=== PATIENT | female | born 1940 | race Hispanic/Latino ===

== ENCOUNTER 2023-08-31 08:31 | Inpatient (IN) | payer MEDICARE, MEDICAID ==
[2023-08-31] MEDS ORDERED: Acetaminophen 500 MG TAB ONE (09:23)
[2023-08-31 09:45] LABS: Bacteria/HPF 4+ HPF (None Seen); Bilirubin Negative (Negative); Blood, Urine 2+ (Negative); CAUTI Indications for Culture Pelvic or flank pain; Clarity Turbid (Clear); Glucose, Urine (Dipstick) 50 mg/dL (Negative); Ketone, Urine 20 mg/dL (Negative); Leukocyte 500 Leu/uL (Negative); Nitrite 2+ (Negative); Protein, Urine (Dipstick) 30 mg/dL (Neg-Trace); Specific Gravity, Urine 1.011 (1.002-1.036); Squamous Epithelial None Seen HPF (0-3); Urobilinogen Normal mg/dL (Less than 2); WBC/HPF Greater than 50 HPF (0-3); pH, Urine 6.5 (5.0-9.0)
[2023-08-31 09:47] LABS: Urine Culture Reflex Yes Yes
[2023-08-31 10:23] LABS: #Monocytes 1.3 thou/uL (0.11-0.59); #Neutrophils 15.2 thou/uL (1.40-6.50); %Basophils 0.1 % (0.0-1.0); %Lymphocytes 4.6 % (21.0-51.0); %Monocytes 7.6 % (0.0-10.0); %Neutrophils 86.7 % (42.0-75.0); Hematocrit 36.3 % (36.0-47.0); Hemoglobin 12.7 g/dL (12.0-16.0); Mean Corpuscular Hemoglobin 30.9 pg (27.0-31.0); Mean Corpuscular Volume 88.3 fl (78.0-98.0); Mean Platelet Volume 8.7 fL (7.4-10.4); Platelet Count 122 10x3/uL (130-400); RBC Distribution Width 13.8 % (11.5-14.5); Red Blood Cell (RBC) Count 4.11 mill/uL (4.20-5.40); White Blood Cell (WBC) Count 17.5 10x3/uL (4.8-10.8)
[2023-08-31] MEDS ORDERED: Iopamidol-370 76% 500 ML MDV (1 ML CHARGE) ONE (10:25)
[2023-08-31 10:35] LABS: Influenza A by NAA Not Detected (NotDetected); Influenza B by NAA Not Detected (NotDetected); SARS-CoV-2 NAA Rapid Test Not Detected (NotDetected)
[2023-08-31 10:39] LABS: INR-International Normal Ratio 1.4; Prothrombin Time 17.1 sec (12.0-14.7)
[2023-08-31 10:40] LABS: PTT 36.4 sec (22.9-36.1)
[2023-08-31 10:43] LABS: Troponin I 0.077 ng/mL (< 0.028)
[2023-08-31] MEDS ORDERED: Cefepime 2 GM VIAL ONE (10:55)
[2023-08-31] MEDS ORDERED: Sodium Chloride 0.9% 100 ML ONE (10:55)
[2023-08-31 11:00] LABS: ALT (SGPT) 49 U/L (8-55); AST (SGOT) 52 U/L (5-34); Albumin 3.7 g/dL (3.4-4.8); Alkaline Phosphatase 108 U/L (40-110); Anion Gap 14 mmol/L (10-20); BUN (Urea Nitrogen) 9 mg/dL (9.8-20.1); CK (CPK) 47 U/L (29-168); Calc. Creatinine Clearance 0 mL/min (70-130); Calcium 8.4 mg/dL (7.8-10.44); Carbon Dioxide 18 mmol/L (23-31); Chloride 97 mmol/L (98-107); Estimated GFR 84; Globulin 3.3 g/dL (2.4-3.5); Glucose 144 mg/dL (83-110); Lipase Less than 4 U/L (8-78); Magnesium 1.5 mg/dL (1.6-2.6); Potassium 3.6 mmol/L (3.5-5.1); Sodium 125 mmol/L (136-145)
[2023-08-31] MEDS ORDERED: Magnesium 2 GM/50 ML BAG (IN WATER) ONE (11:41)
[2023-08-31] MEDS ORDERED: Vancomycin 1 GM/200 ML (FROZEN) BAG ONE (11:42)
[2023-08-31] MEDS ORDERED: Aspirin Chewable 81 MG TAB ONE (13:10)
[2023-08-31] MEDS ORDERED: Acetaminophen 650 MG Suppository PR PRN (13:32)
[2023-08-31] MEDS ORDERED: Ondansetron PF 4 MG/2 ML Vial IVP PRN (13:32)
[2023-08-31 15:08] LABS: Lactic Acid 2.3 mmol/L (0.5-2.2)
[2023-08-31 16:03] LABS: Actual Bicarbonate (HCO3v) 19.1 mEq/L (22-28); Base Excess -6.9 mEq/L (-2.0 to +3.0); Calcium, Ionized (venous) 1.05 mmol/L (1.16-1.32); Chloride (VBG) 93 mmol/L (98-106); Hematocrit-VBG 40 % (36.0-47.0); Hemoglobin (Hb) 13.6 g/dL (11.7-16.1); Potassium (VBG) 3.33 mmol/L (3.70-5.30); Sodium 128 mmol/L (133-146); pH (venous) 7.298 (7.32-7.43)
[2023-08-31] MEDS ORDERED: Acetaminophen 325 MG TAB ONE (16:31)
[2023-08-31] MEDS: Acetaminophen 325 MG TAB PO PRN (16:36)
[2023-08-31 17:06] LABS: Troponin I 0.099 ng/mL (< 0.028)
[2023-08-31 18:02] VITALS: BMI 31.8
[2023-08-31] MEDS: Sodium Chloride 0.9% 1,000 ML IV SCH (18:40)
[2023-08-31] MEDS ORDERED: cefTRIAXone\\ROCEPHIN 1 GM in Sodium Chloride 0.9% 100 ML IVPB SCH (21:00)
[2023-09-01] MEDS: Cefepime 1 GM in Sodium Chloride 0.9% 100 ML IVPB SCH (00:11)
[2023-09-01 05:56] LABS: Hematocrit 35.1 % (36.0-47.0); Hemoglobin 11.8 g/dL (12.0-16.0); Manual Diff?? YES; Mean Corpuscular HGB CONC 33.6 g/dL (32.0-36.0); Mean Corpuscular Hemoglobin 31.1 pg (27.0-31.0); Mean Platelet Volume 9.2 fL (7.4-10.4); Platelet Count 105 10x3/uL (130-400); RBC Distribution Width 14.6 % (11.5-14.5); Red Blood Cell (RBC) Count 3.79 mill/uL (4.20-5.40); White Blood Cell (WBC) Count 16.8 10x3/uL (4.8-10.8)
[2023-09-01 06:01] LABS: Delete Auto Diff?? YES
[2023-09-01 06:20] LABS: Anion Gap 11 mmol/L (10-20); BUN (Urea Nitrogen) 11 mg/dL (9.8-20.1); Calc. Creatinine Clearance 65 mL/min (70-130); Carbon Dioxide 21 mmol/L (23-31); Chloride 104 mmol/L (98-107); Estimated GFR 81; Glucose 106 mg/dL (83-110); Potassium 3.6 mmol/L (3.5-5.1); Sodium 132 mmol/L (136-145)
[2023-09-01 06:27] LABS: Band 22 % (5-11); CellaVision Operator ID LAB.CLH1; Eosinophils 1 % (0-10); Hypochromia SLIGHT = 6-15 cells HPF (0-5); Lymphocytes 5 % (21-51); Monocytes 4 % (0-10); Neutrophil 68 % (42-75); Platelet Adequacy Comment Platelets Normal; Polychromasia SLIGHT = 2-3 cells HPF (0-2); Total Cell Count 100
[2023-09-01 06:35] LABS: Mean Corpuscular Volume 92.6 fl (78.0-98.0)
[2023-09-01] MEDS: Enoxaparin 40 MG (0.4 mL) SYRINGE SC SCH (09:16)
[2023-09-01] MEDS ORDERED: Polyethylene Glycol 3350 17 GM Packet PO PRN (16:57)
[2023-09-01] MEDS: Potassium Bicarbonate/Cit Ac 20 MEQ TAB PO SCH (18:11)
[2023-09-01] MEDS: Magnesium 2 GM/50 ML(in water) 2 GM in Premix 1 BAG IVPB SCH (18:11)
[2023-09-01] MEDS: Ipratropium/Albuterol 3 ML NEB NEB SCH (20:41)
[2023-09-01] MEDS: Ipratropium/Albuterol 3 ML NEB NEB PRN (21:34)
[2023-09-01] MEDS: guaiFENesin ER 600 MG TAB PO SCH (21:35)
[2023-09-01] MEDS: Apixaban 2.5 MG TAB PO SCH (21:35)
[2023-09-01] MEDS: Senokot S 8.6-50 MG TAB PO SCH (21:35)
[2023-09-01] MEDS: cefTRIAXone\\ROCEPHIN 1 GM in Sodium Chloride 0.9% 100 ML IVPB SCH (21:36)
[2023-09-01] MEDS: Polyethylene Glycol 3350 17 GM Packet PO SCH (21:36)
[2023-09-01] MEDS: Latanoprost 0.005% Ophth Soln 2.5 ml Bottle R EYE SCH (21:51)
[2023-09-01] MEDS: Brimonidine Tartrate 0.2% Ophth Soln 5 ml Bottle R EYE SCH (21:51)
[2023-09-01] MEDS: DorzolamidE/Timolol 2%/0.5% Ophth Soln 10 ml Bottle EA EYE SCH (21:51)
[2023-09-01] MEDS: prednisoLONE 1% Ophth Susp 5 ml Bottle R EYE SCH (21:51)
[2023-09-02] MEDS: Levothyroxine Sodium 50 MCG TAB PO SCH (05:48)
[2023-09-02 06:36] LABS: #Eosinphils 0.2 thou/uL (0.0-0.7); #Monocytes 1.3 thou/uL (0.11-0.59); #Neutrophils 10.1 thou/uL (1.40-6.50); %Basophils 0.2 % (0.0-1.0); %Eosinophils 1.4 % (0.0-10.0); %Lymphocytes 11.6 % (21.0-51.0); %Monocytes 9.6 % (0.0-10.0); %Neutrophils 76.5 % (42.0-75.0); Hemoglobin 12.3 g/dL (12.0-16.0); Mean Corpuscular HGB CONC 34.2 g/dL (32.0-36.0); Mean Corpuscular Hemoglobin 30.9 pg (27.0-31.0); Mean Corpuscular Volume 90.5 fl (78.0-98.0); Mean Platelet Volume 9.3 fL (7.4-10.4); Platelet Count 116 10x3/uL (130-400); RBC Distribution Width 14.5 % (11.5-14.5); Red Blood Cell (RBC) Count 3.98 mill/uL (4.20-5.40); White Blood Cell (WBC) Count 13.2 10x3/uL (4.8-10.8)
[2023-09-02 07:02] LABS: Anion Gap 9 mmol/L (10-20); BUN (Urea Nitrogen) 11 mg/dL (9.8-20.1); Calc. Creatinine Clearance 71 mL/min (70-130); Calcium 8.3 mg/dL (7.8-10.44); Carbon Dioxide 26 mmol/L (23-31); Chloride 100 mmol/L (98-107); Estimated GFR 86; Glucose 92 mg/dL (83-110); Magnesium 2.3 mg/dL (1.6-2.6); Potassium 4.2 mmol/L (3.5-5.1); Sodium 131 mmol/L (136-145)
[2023-09-02] MEDS: Atorvastatin Calcium 10 MG TAB PO SCH (08:37)
[2023-09-02] MEDS: Mirabegron ER 25 MG ER.TAB PO SCH (08:38)
[2023-09-02] MEDS: Saccharomyces boulardii 250 MG CAP PO SCH (08:38)
[2023-09-02] MEDS: Ondansetron ODT 4 MG TAB PO PRN (17:02)
[2023-09-02] MEDS ORDERED: carBAMazepine 100 mg Chewable Tablet PO SCH (21:00)
[2023-09-03 06:00] LABS: #Monocytes 0.7 thou/uL (0.11-0.59); #Neutrophils 6.7 thou/uL (1.40-6.50); %Basophils 0.2 % (0.0-1.0); %Eosinophils 0.5 % (0.0-10.0); %Lymphocytes 10.3 % (21.0-51.0); %Neutrophils 80.5 % (42.0-75.0); Hematocrit 34.3 % (36.0-47.0); Hemoglobin 11.7 g/dL (12.0-16.0); Mean Corpuscular HGB CONC 34.1 g/dL (32.0-36.0); Mean Corpuscular Hemoglobin 30.9 pg (27.0-31.0); Mean Corpuscular Volume 90.5 fl (78.0-98.0); Mean Platelet Volume 9.8 fL (7.4-10.4); Platelet Count 127 10x3/uL (130-400); RBC Distribution Width 14.4 % (11.5-14.5); Red Blood Cell (RBC) Count 3.79 mill/uL (4.20-5.40); White Blood Cell (WBC) Count 8.4 10x3/uL (4.8-10.8)
[2023-09-03 06:23] LABS: Lactic Acid 3.8 mmol/L (0.5-2.2)
[2023-09-03 06:28] LABS: Anion Gap 13 mmol/L (10-20); BUN (Urea Nitrogen) 10 mg/dL (9.8-20.1); Calc. Creatinine Clearance 67 mL/min (70-130); Carbon Dioxide 24 mmol/L (23-31); Chloride 96 mmol/L (98-107); Sodium 129 mmol/L (136-145)
[2023-09-03 06:29] LABS: Calcium 8.3 mg/dL (7.8-10.44); Estimated GFR 84; Glucose 168 mg/dL (83-110); Magnesium 1.8 mg/dL (1.6-2.6)
[2023-09-03] MEDS: Magnesium 2 GM/50 ML(in water) 2 GM in Premix 1 BAG IVPB SCH (08:38)
[2023-09-03] MEDS ORDERED: Escitalopram Oxalate 10 mg Tablet PO SCH (09:00)
[2023-09-03] MEDS: Sodium Chloride 1 GM TAB PO SCH ×2 (11:08→15:33)
[2023-09-03] MEDS: carBAMazepine 100 mg Chewable Tablet PO SCH (19:57)
[2023-09-04 07:00] LABS: Anion Gap 10 mmol/L (10-20); BUN (Urea Nitrogen) 9 mg/dL (9.8-20.1); Calc. Creatinine Clearance 73 mL/min (70-130); Calcium 8.4 mg/dL (7.8-10.44); Carbon Dioxide 23 mmol/L (23-31); Chloride 100 mmol/L (98-107); Estimated GFR 87; Glucose 107 mg/dL (83-110); Potassium 4.4 mmol/L (3.5-5.1); Sodium 129 mmol/L (136-145)
[2023-09-04] MEDS: Escitalopram Oxalate 10 mg Tablet PO SCH (08:44)
[2023-09-04 12:03] VITALS: BP 132/84; TEMP 98.4
== END 2023-09-04 12:49 | disposition home or self-care (01) | DRG 871 ==
LOC: ERS 08:31 → ERHOLD 13:05 → 2NO 17:28
PROVIDERS: ADMIT Internal Medicine; ATTEND Internal Medicine
DX: A41.51 Sepsis due to Escherichia coli [E. coli] (principal); G93.41 Metabolic encephalopathy; I21.A1 Myocardial infarction type 2; D68.9 Coagulation defect, unspecified; E87.1 Hypo-osmolality and hyponatremia; N30.00 Acute cystitis without hematuria; E83.42 Hypomagnesemia; E11.9 Type 2 diabetes mellitus without complications; I10 Essential (primary) hypertension; E78.5 Hyperlipidemia, unspecified; E03.9 Hypothyroidism, unspecified; Z95.0 Presence of cardiac pacemaker; F41.9 Anxiety disorder, unspecified; Z11.52 Encounter for screening for COVID-19; E66.9 Obesity, unspecified; Z68.31 Body mass index [BMI] 31.0-31.9, adult; E87.6 Hypokalemia; Z79.899 Other long term (current) drug therapy; R65.20 Severe sepsis without septic shock
CPT/HCPCS: 36415; 36416; 70450; 71045; 74177; 80048; 80053; 81001; 82550; 82805; 83605; 83690; 83735; 83935; 84300; 84443; 84484; 85025; 85610; 85730; 87040; 87077; 87086; 87149; 87186; 93005; 96374; 96375; J0692; J0696; J1650; J3370-JW; J3475; J3490; J7050; J7620; Q0162; Q9967

== ENCOUNTER 2023-09-21 10:52 | Outpatient (CLI) | payer MEDICARE, MEDICAID | END 2023-09-21 10:53 | disposition home or self-care (01) | LOC: BICRAD 10:52 | PROVIDERS: ATTEND Family Medicine | DX: Z00.00 Encounter for general adult medical examination without abnormal findings (principal) | CPT/HCPCS: 71046 ==

== ENCOUNTER 2023-12-03 22:41 | Inpatient (IN) | payer MEDICARE, MEDICAID ==
[2023-12-03 23:11] LABS: #Basophils Less than 0.03 10x3/uL (0.0-0.2); %Basophils 0.3 % (0.0-1.0); %Eosinophils 0.9 % (0.0-10.0); %Lymphocytes 38.8 % (21.0-51.0); %Neutrophils 48.5 % (42.0-75.0); Hematocrit 40.4 % (36.0-47.0); Hemoglobin 14.6 g/dL (12.0-16.0); Mean Corpuscular HGB CONC 36.1 g/dL (32.0-36.0); Mean Corpuscular Hemoglobin 31.5 pg (27.0-31.0); Mean Corpuscular Volume 87.3 fL (78.0-98.0); Mean Platelet Volume 8.4 fL (7.4-10.4); Platelet Count 181 10x3/uL (130-400); RBC Distribution Width 13.4 % (11.5-14.5); Red Blood Cell (RBC) Count 4.63 mill/uL (4.20-5.40)
[2023-12-03 23:27] LABS: INR-International Normal Ratio 1.2; Prothrombin Time 14.8 sec (12.0-14.7)
[2023-12-03 23:28] LABS: PTT 33.2 sec (22.9-36.1)
[2023-12-03 23:39] LABS: Troponin I 0.011 ng/mL (< 0.028)
[2023-12-04] MEDS ORDERED: Acetaminophen 500 MG TAB ONE (00:03)
[2023-12-04 00:10] LABS: ALT (SGPT) 35 U/L (8-55); AST (SGOT) 37 U/L (5-34); Alkaline Phosphatase 85 U/L (40-110); Anion Gap 14 mmol/L (10-20); BUN (Urea Nitrogen) 14 mg/dL (9.8-20.1); Bilirubin, Total 0.6 mg/dL (0.2-1.2); Calc. Creatinine Clearance 0 mL/min (70-130); Calcium 9.1 mg/dL (7.8-10.44); Carbon Dioxide 19 mmol/L (23-31); Chloride 88 mmol/L (98-107); Estimated GFR 60; Globulin 3.8 g/dL (2.4-3.5); Glucose 123 mg/dL (83-110); Potassium 4.9 mmol/L (3.5-5.1); Protein, Total 7.8 g/dL (5.8-8.1); Sodium 116 mmol/L (136-145)
[2023-12-04] MEDS ORDERED: hydrALAZINE 20 MG/ML VIAL ONE (01:13)
[2023-12-04 01:44] LABS: Bacteria/HPF None Seen HPF (None Seen); Bilirubin Negative (Negative); Blood, Urine 1+ (Negative); CAUTI Indications for Culture Pelvic or flank pain; Clarity Clear (Clear); Glucose, Urine (Dipstick) Normal (Negative); Ketone, Urine Trace mg/dL (Negative); Leukocyte Negative Leu/uL (Negative); Nitrite Negative (Negative); Protein, Urine (Dipstick) Negative (Neg-Trace); Specific Gravity, Urine 1.007 (1.002-1.036); Squamous Epithelial None Seen HPF (0-3); Urobilinogen Normal mg/dL (Less than 2)
[2023-12-04 01:48] LABS: Urine Culture Reflex No No
[2023-12-04 02:28] VITALS: BMI 31.6
[2023-12-04] MEDS: Sodium Chloride 0.9% 500 ML IV SCH (02:30)
[2023-12-04] MEDS: HYDROcodone/Acetaminophen 5/325 mg Tablet PO PRN (02:59)
[2023-12-04 03:23] LABS: Bacteria/HPF None Seen HPF (None Seen); Bilirubin Negative (Negative); Blood, Urine 1+ (Negative); CAUTI Indications for Culture Alt mental st,lethar; Clarity Clear (Clear); Glucose, Urine (Dipstick) Normal (Negative); Ketone, Urine Trace mg/dL (Negative); Leukocyte Negative Leu/uL (Negative); Nitrite Negative (Negative); Protein, Urine (Dipstick) Negative (Neg-Trace); RBC/HPF 0-3 HPF (0-3); Specific Gravity, Urine 1.005 (1.002-1.036); Squamous Epithelial 0-3 HPF (0-3); Urobilinogen Normal mg/dL (Less than 2); WBC/HPF 0-3 HPF (0-3); pH, Urine 6.5 (5.0-9.0)
[2023-12-04 03:24] LABS: Urine Culture Reflex No No
[2023-12-04 03:36] LABS: Creatinine, Urine 11.71 mg/dL (47-110)
[2023-12-04 05:03] LABS: #Basophils Less than 0.03 10x3/uL (0.0-0.2); %Basophils 0.2 % (0.0-1.0); %Eosinophils 0.5 % (0.0-10.0); %Lymphocytes 31.1 % (21.0-51.0); %Monocytes 11.2 % (0.0-10.0); %Neutrophils 56.8 % (42.0-75.0); Hematocrit 39.1 % (36.0-47.0); Hemoglobin 13.7 g/dL (12.0-16.0); Mean Corpuscular Hemoglobin 31.5 pg (27.0-31.0); Mean Corpuscular Volume 89.9 fL (78.0-98.0); Mean Platelet Volume 8.8 fL (7.4-10.4); Platelet Count 167 10x3/uL (130-400); RBC Distribution Width 13.4 % (11.5-14.5); Red Blood Cell (RBC) Count 4.35 mill/uL (4.20-5.40)
[2023-12-04 05:18] LABS: Anion Gap 12 mmol/L (10-20); BUN (Urea Nitrogen) 11 mg/dL (9.8-20.1); Calc. Creatinine Clearance 57 mL/min (70-130); Carbon Dioxide 19 mmol/L (23-31); Chloride 94 mmol/L (98-107); Potassium 3.9 mmol/L (3.5-5.1); Sodium 121 mmol/L (136-145)
[2023-12-04 05:19] LABS: ALT (SGPT) 32 U/L (8-55); AST (SGOT) 34 U/L (5-34); Albumin 3.6 g/dL (3.4-4.8); Alkaline Phosphatase 80 U/L (40-110); Bilirubin, Total 0.6 mg/dL (0.2-1.2); Calcium 8.5 mg/dL (7.8-10.44); Estimated GFR 80; Globulin 3.5 g/dL (2.4-3.5); Glucose 101 mg/dL (83-110); Protein, Total 7.1 g/dL (5.8-8.1)
[2023-12-04] MEDS: Levothyroxine Sodium 50 MCG TAB PO SCH (06:05)
[2023-12-04] MEDS: DorzolamidE/Timolol 2%/0.5% Ophth Soln 10 ml Bottle EA EYE SCH (07:30)
[2023-12-04] MEDS: Sodium Chloride 0.9% 1,000 ML IV SCH (07:30)
[2023-12-04] MEDS: Brimonidine Tartrate 0.2% Ophth Soln 5 ml Bottle R EYE SCH ×2 (07:30→20:34)
[2023-12-04] MEDS ORDERED: Escitalopram Oxalate 10 mg Tablet PO SCH (09:00)
[2023-12-04] MEDS ORDERED: carBAMazepine 100 mg Chewable Tablet PO SCH (09:00)
[2023-12-04 09:11] LABS: Chloride 100 mmol/L (98-107); Sodium 125 mmol/L (136-145)
[2023-12-04 09:12] LABS: Glucose 128 mg/dL (83-110)
[2023-12-04 09:14] LABS: Anion Gap 17 mmol/L (10-20); Carbon Dioxide 13 mmol/L (23-31)
[2023-12-04 09:16] LABS: BUN (Urea Nitrogen) 10 mg/dL (9.8-20.1); Calc. Creatinine Clearance 55 mL/min (70-130); Estimated GFR 76
[2023-12-04 09:18] LABS: Uric Acid 2.3 mg/dL (2.6-6.0)
[2023-12-04 09:22] LABS: Potassium 4.9 mmol/L (3.5-5.1)
[2023-12-04] MEDS: Mirabegron ER 25 MG ER.TAB PO SCH (09:32)
[2023-12-04] MEDS: Famotidine 20 MG TAB PO SCH (09:32)
[2023-12-04] MEDS: Atorvastatin Calcium 10 MG TAB PO SCH (09:32)
[2023-12-04] MEDS: Losartan 25 MG TAB PO SCH (09:32)
[2023-12-04] MEDS: Latanoprost 0.005% Ophth Soln 2.5 ml Bottle R EYE SCH (09:34)
[2023-12-04] MEDS: Dextrose 5% in Water 1,000 ML IV SCH (10:12)
[2023-12-04 12:25] LABS: Anion Gap 14 mmol/L (10-20); BUN (Urea Nitrogen) 10 mg/dL (9.8-20.1); Calc. Creatinine Clearance 59 mL/min (70-130); Calcium 8.7 mg/dL (7.8-10.44); Carbon Dioxide 16 mmol/L (23-31); Chloride 97 mmol/L (98-107); Estimated GFR 82; Glucose 133 mg/dL (83-110); Potassium 3.7 mmol/L (3.5-5.1); Sodium 123 mmol/L (136-145)
[2023-12-04 17:50] LABS: Anion Gap 15 mmol/L (10-20); BUN (Urea Nitrogen) 10 mg/dL (9.8-20.1); Calcium 8.5 mg/dL (7.8-10.44); Carbon Dioxide 13 mmol/L (23-31); Chloride 99 mmol/L (98-107); Glucose 113 mg/dL (83-110); Potassium 4.8 mmol/L (3.5-5.1); Sodium 122 mmol/L (136-145)
[2023-12-04 18:00] LABS: Calc. Creatinine Clearance 49 mL/min (70-130); Estimated GFR 66
[2023-12-04 20:14] LABS: Anion Gap 12 mmol/L (10-20); BUN (Urea Nitrogen) 13 mg/dL (9.8-20.1); Calc. Creatinine Clearance 47 mL/min (70-130); Carbon Dioxide 19 mmol/L (23-31); Chloride 96 mmol/L (98-107); Estimated GFR 63; Glucose 133 mg/dL (83-110); Sodium 123 mmol/L (136-145)
[2023-12-04] MEDS: Sodium Chloride 1 GM TAB PO SCH (20:37)
[2023-12-04] MEDS: Acetaminophen 325 MG TAB PO PRN (21:15)
[2023-12-05 07:18] LABS: #Basophils 0.03 10x3/uL (0.0-0.2); %Basophils 0.6 % (0.0-1.0); %Lymphocytes 47.6 % (21.0-51.0); %Monocytes 13.8 % (0.0-10.0); %Neutrophils 34.8 % (42.0-75.0); Hematocrit 40.7 % (36.0-47.0); Hemoglobin 13.8 g/dL (12.0-16.0); Mean Corpuscular HGB CONC 33.9 g/dL (32.0-36.0); Mean Corpuscular Hemoglobin 30.9 pg (27.0-31.0); Mean Corpuscular Volume 91.1 fL (78.0-98.0); Mean Platelet Volume 8.9 fL (7.4-10.4); Platelet Count 154 10x3/uL (130-400); Red Blood Cell (RBC) Count 4.47 mill/uL (4.20-5.40)
[2023-12-05] MEDS: prednisoLONE 1% Ophth Susp 5 ml Bottle R EYE SCH (10:25)
[2023-12-05] MEDS: carBAMazepine 100 mg Chewable Tablet PO SCH (22:15)
[2023-12-05] MEDS: Famotidine 20 MG TAB PO SCH (22:16)
[2023-12-06 05:11] LABS: #Basophils Less than 0.03 10x3/uL (0.0-0.2); %Basophils 0.3 % (0.0-1.0); %Eosinophils 2.6 % (0.0-10.0); %Lymphocytes 48.3 % (21.0-51.0); %Monocytes 13.2 % (0.0-10.0); %Neutrophils 35.3 % (42.0-75.0); Hematocrit 36.7 % (36.0-47.0); Hemoglobin 12.6 g/dL (12.0-16.0); Mean Corpuscular HGB CONC 34.3 g/dL (32.0-36.0); Mean Corpuscular Hemoglobin 31.2 pg (27.0-31.0); Mean Corpuscular Volume 90.8 fL (78.0-98.0); Platelet Count 162 10x3/uL (130-400); RBC Distribution Width 14.1 % (11.5-14.5); Red Blood Cell (RBC) Count 4.04 mill/uL (4.20-5.40)
[2023-12-06 05:29] LABS: Anion Gap 11 mmol/L (10-20); BUN (Urea Nitrogen) 24 mg/dL (9.8-20.1); Calc. Creatinine Clearance 51 mL/min (70-130); Calcium 8.6 mg/dL (7.8-10.44); Carbon Dioxide 19 mmol/L (23-31); Chloride 104 mmol/L (98-107); Estimated GFR 68; Glucose 91 mg/dL (83-110); Sodium 130 mmol/L (136-145)
[2023-12-06] MEDS: Apixaban 2.5 MG TAB PO SCH (20:55)
[2023-12-06] MEDS ORDERED: IRON FUM PS CMP PO SCH (21:00)
[2023-12-06] MEDS ORDERED: Apixaban 2.5 MG TAB PO SCH (21:00)
[2023-12-06] MEDS ORDERED: INTEGRA DT SCH (21:00)
[2023-12-06] MEDS ORDERED: NIACIN PO SCH (21:00)
[2023-12-06] MEDS ORDERED: VIT C PO SCH (21:00)
[2023-12-07 06:00] LABS: #Basophils 0.03 10x3/uL (0.0-0.2); %Basophils 0.5 % (0.0-1.0); %Eosinophils 2.4 % (0.0-10.0); %Lymphocytes 46.9 % (21.0-51.0); %Monocytes 12.6 % (0.0-10.0); %Neutrophils 37.4 % (42.0-75.0); Hematocrit 37.4 % (36.0-47.0); Hemoglobin 12.7 g/dL (12.0-16.0); Mean Corpuscular Hemoglobin 30.8 pg (27.0-31.0); Mean Corpuscular Volume 90.6 fL (78.0-98.0); Mean Platelet Volume 8.9 fL (7.4-10.4); Platelet Count 168 10x3/uL (130-400); Red Blood Cell (RBC) Count 4.13 mill/uL (4.20-5.40)
[2023-12-07 06:13] LABS: Anion Gap 13 mmol/L (10-20); BUN (Urea Nitrogen) 22 mg/dL (9.8-20.1); Calc. Creatinine Clearance 63 mL/min (70-130); Calcium 8.8 mg/dL (7.8-10.44); Carbon Dioxide 20 mmol/L (23-31); Chloride 105 mmol/L (98-107); Estimated GFR 86; Glucose 92 mg/dL (83-110); Potassium 3.9 mmol/L (3.5-5.1); Sodium 134 mmol/L (136-145)
[2023-12-07] MEDS: Saccharomyces boulardii 250 MG CAP PO SCH (10:39)
[2023-12-07 12:09] VITALS: BP 124/78; TEMP 98.4
== END 2023-12-07 14:06 | disposition home or self-care (01) | DRG 641 ==
LOC: ERS 22:41 → CCU 12-04 00:51 → SURG A 12-05 07:40
PROVIDERS: ADMIT Internal Medicine; ATTEND Internal Medicine
DX: E87.1 Hypo-osmolality and hyponatremia (principal); N39.0 Urinary tract infection, site not specified; W18.30XA Fall on same level, unspecified, initial encounter; S00.03XA Contusion of scalp, initial encounter; E03.9 Hypothyroidism, unspecified; I10 Essential (primary) hypertension; F32.A Depression, unspecified; E78.5 Hyperlipidemia, unspecified; Z79.890 Hormone replacement therapy; Z79.899 Other long term (current) drug therapy; Z95.0 Presence of cardiac pacemaker
CPT/HCPCS: 36415; 36416; 70450; 72125; 80048; 80053; 81001; 82533; 82570; 83930; 83935; 84145; 84300; 84443; 84484; 84550; 85025; 85610; 85730; 87040; 87077; 87086; 87186; 93005; 94760; J0360; J7030; J7050; J7070

== ENCOUNTER 2024-02-06 09:08 | Outpatient (CLI) | payer MEDICARE, MEDICAID | END 2024-02-06 09:09 | disposition home or self-care (01) | LOC: RAD 09:08 | PROVIDERS: ATTEND Psychiatry & Neurology Neurology | DX: G50.0 Trigeminal neuralgia (principal); Z95.0 Presence of cardiac pacemaker | CPT/HCPCS: 71046 ==

== ENCOUNTER 2024-07-02 01:01 | Inpatient (IN) | payer MEDICARE, MEDICAID ==
[2024-07-02] MEDS ORDERED: Nitroglycerin 2% Ointment 1 INCH/1 GM Packet ONE (01:26)
[2024-07-02 01:33] LABS: #Basophils 0.03 10x3/uL (0.0-0.2); #Eosinophils Less than 0.03 10x3/uL (0.0-0.7); %Basophils 0.4 % (0.0-1.0); %Eosinophils 0.2 % (0.0-10.0); %Lymphocytes 7.9 % (21.0-51.0); %Monocytes 9.2 % (0.0-10.0); %Neutrophils 81.9 % (42.0-75.0); Hematocrit 42.4 % (36.0-47.0); Mean Corpuscular HGB CONC 35.4 g/dL (32.0-36.0); Mean Corpuscular Hemoglobin 31.8 pg (27.0-31.0); Mean Corpuscular Volume 89.8 fL (78.0-98.0); Mean Platelet Volume 9.5 fL (7.4-10.4); Platelet Count 185 10x3/uL (130-400); RBC Distribution Width 13.3 % (11.5-14.5); Red Blood Cell (RBC) Count 4.72 mill/uL (4.20-5.40)
[2024-07-02 01:51] LABS: Troponin I 0.019 ng/mL (< 0.028)
[2024-07-02 03:21] LABS: Chloride 96 mmol/L (98-107); Sodium 128 mmol/L (136-145)
[2024-07-02 03:22] LABS: Calcium 8.5 mg/dL (7.8-10.44); Glucose 157 mg/dL (83-110)
[2024-07-02 03:23] LABS: Globulin 4.7 g/dL (2.4-3.5)
[2024-07-02 03:24] LABS: Anion Gap 20 mmol/L (10-20); Carbon Dioxide 18 mmol/L (23-31)
[2024-07-02 03:25] LABS: Bilirubin, Total 0.6 mg/dL (0.2-1.2)
[2024-07-02 03:26] LABS: Alkaline Phosphatase 114 U/L (40-110)
[2024-07-02 03:27] LABS: BUN (Urea Nitrogen) 8 mg/dL (9.8-20.1); Calc. Creatinine Clearance 0 mL/min (70-130); Estimated GFR 70
[2024-07-02 03:28] LABS: ALT (SGPT) 41 U/L (8-55)
[2024-07-02 04:22] LABS: Potassium 3.2 mmol/L (3.5-5.1); Protein, Total 7.8 g/dL (5.8-8.1)
[2024-07-02 04:23] LABS: Lactic Acid 1.48 mmol/L (0.5-2.2)
[2024-07-02 04:43] LABS: Troponin I 0.017 ng/mL (< 0.028)
[2024-07-02 04:45] LABS: Lipase 8 U/L (8-78)
[2024-07-02 04:48] LABS: CK (CPK) 51 U/L (29-168)
[2024-07-02 04:51] LABS: AST (SGOT) 41 U/L (5-34)
[2024-07-02 05:07] LABS: Bacteria/HPF None Seen HPF (None Seen); Bilirubin Negative (Negative); Blood, Urine Trace (Negative); CAUTI Indications for Culture Alt mental st,lethar; Clarity Clear (Clear); Glucose, Urine (Dipstick) Normal (Negative); Ketone, Urine 10 mg/dL (Negative); Leukocyte 500 Leu/uL (Negative); Nitrite Negative (Negative); Protein, Urine (Dipstick) Negative (Neg-Trace); RBC/HPF 0-3 HPF (0-3); Specific Gravity, Urine 1.007 (1.002-1.036); Squamous Epithelial None Seen HPF (0-3); Urobilinogen Normal mg/dL (Less than 2); WBC/HPF 21-50 HPF (0-3); pH, Urine 7.5 (5.0-9.0)
[2024-07-02 05:09] LABS: Urine Culture Reflex Yes Yes
[2024-07-02] MEDS ORDERED: cefTRIAXone (ROCEPHIN) 1 GM VIAL ONE (05:16)
[2024-07-02] MEDS ORDERED: Sodium Chloride 0.9% 100 ML ONE (05:17)
[2024-07-02 06:06] LABS: Magnesium 1.7 mg/dL (1.6-2.6); Phosphorus 1.9 mg/dL (2.3-4.7)
[2024-07-02] MEDS ORDERED: Acetaminophen 500 MG TAB ONE (07:08)
[2024-07-02] MEDS ORDERED: Bisacodyl 5 MG TAB PO PRN (08:02)
[2024-07-02] MEDS ORDERED: Acetaminophen 650 MG Suppository PR PRN (08:02)
[2024-07-02] MEDS ORDERED: Senokot S 8.6-50 MG TAB PO PRN (08:02)
[2024-07-02 08:33] LABS: Anion Gap 16 mmol/L (10-20); BUN (Urea Nitrogen) 7 mg/dL (9.8-20.1); Calc. Creatinine Clearance 69 mL/min (70-130); Calcium 8.6 mg/dL (7.8-10.44); Carbon Dioxide 18 mmol/L (23-31); Chloride 100 mmol/L (98-107); Estimated GFR 86; Glucose 120 mg/dL (83-110); Potassium 3.3 mmol/L (3.5-5.1); Sodium 131 mmol/L (136-145)
[2024-07-02] MEDS ORDERED: Magnesium 2 GM/50 ML BAG (IN WATER) ONE (08:38)
[2024-07-02] MEDS: Potassium Phosphate 30 MMOL in Sodium Chloride 0.9% 500 ML IVPB SCH (08:55)
[2024-07-02] MEDS: Magnesium 2 GM/50 ML(in water) 2 GM in Premix 1 BAG IVPB SCH (08:55)
[2024-07-02 09:42] VITALS: BMI 28.9
[2024-07-02 10:00] LABS: Potassium, Urine 15.2 mmol/L
[2024-07-02] MEDS: Acetaminophen 325 MG TAB PO PRN (11:38)
[2024-07-02] MEDS ORDERED: Electrolyte Replacement Protocol 1 EACH FS SCH (14:00)
[2024-07-02] MEDS ORDERED: Electrolyte Replacement Protocol FS PRN (14:00)
[2024-07-02] MEDS: carBAMazepine 100 mg Chewable Tablet PO SCH ×2 (14:05→23:18)
[2024-07-02] MEDS: Guaifenesin DM 100-10/5 ML UDCUP PO PRN (14:07)
[2024-07-02] MEDS: Pantoprazole DR 40 MG TAB PO SCH (18:01)
[2024-07-02 19:53] LABS: Sodium 125 mmol/L (136-145)
[2024-07-02] MEDS: Apixaban 2.5 MG TAB PO SCH (20:55)
[2024-07-02] MEDS: Ondansetron ODT 4 MG TAB PO PRN (20:55)
[2024-07-02] MEDS: Atorvastatin Calcium 10 MG TAB PO SCH (20:55)
[2024-07-02 22:54] LABS: Sodium 123 mmol/L (136-145)
[2024-07-02] MEDS: Brimonidine Tartrate 0.2% Ophth Soln 5 ml Bottle EA EYE SCH (23:17)
[2024-07-02] MEDS: prednisoLONE 1% Ophth Susp 5 ml Bottle EA EYE SCH (23:18)
[2024-07-02] MEDS: INTEGRA PO SCH (23:18)
[2024-07-02] MEDS: DorzolamidE/Timolol 2%/0.5% Ophth Soln 10 ml Bottle EA EYE SCH (23:18)
[2024-07-03] MEDS: Levothyroxine Sodium 50 MCG TAB PO SCH (05:33)
[2024-07-03] MEDS: cefTRIAXone\\ROCEPHIN 1 GM in Sodium Chloride 0.9% 100 ML IVPB SCH (05:34)
[2024-07-03 06:30] LABS: #Basophils Less than 0.03 10x3/uL (0.0-0.2); #Eosinophils Less than 0.03 10x3/uL (0.0-0.7); %Basophils 0.1 % (0.0-1.0); %Lymphocytes 7.4 % (21.0-51.0); %Monocytes 11.3 % (0.0-10.0); %Neutrophils 80.8 % (42.0-75.0); Hematocrit 41.5 % (36.0-47.0); Hemoglobin 14.6 g/dL (12.0-16.0); Mean Corpuscular HGB CONC 35.2 g/dL (32.0-36.0); Mean Corpuscular Hemoglobin 30.9 pg (27.0-31.0); Mean Corpuscular Volume 87.9 fL (78.0-98.0); Mean Platelet Volume 9.4 fL (7.4-10.4); Platelet Count 177 10x3/uL (130-400); RBC Distribution Width 13.2 % (11.5-14.5); Red Blood Cell (RBC) Count 4.72 mill/uL (4.20-5.40)
[2024-07-03 06:48] LABS: Anion Gap 15 mmol/L (10-20); BUN (Urea Nitrogen) 16 mg/dL (9.8-20.1); Calc. Creatinine Clearance 63 mL/min (70-130); Calcium 8.5 mg/dL (7.8-10.44); Carbon Dioxide 18 mmol/L (23-31); Chloride 91 mmol/L (98-107); Estimated GFR 86; Glucose 171 mg/dL (83-110); Magnesium 1.9 mg/dL (1.6-2.6); Potassium 3.6 mmol/L (3.5-5.1); Sodium 120 mmol/L (136-145)
[2024-07-03 06:55] LABS: Phosphorus 1.9 mg/dL (2.3-4.7); Sodium 120 mmol/L (136-145)
[2024-07-03] MEDS: Magnesium 2 GM/50 ML(in water) 2 GM in Premix 1 BAG IVPB SCH (08:55)
[2024-07-03] MEDS: PHOS-NAK 1 PKT PACK PO SCH (08:55)
[2024-07-03] MEDS: Pantoprazole DR 40 MG TAB PO SCH (08:56)
[2024-07-03] MEDS: Mirabegron ER 25 MG ER.TAB PO SCH (08:57)
[2024-07-03] MEDS: Ondansetron PF 4 MG/2 ML Vial IVP PRN (09:08)
[2024-07-03 11:16] LABS: Sodium 120 mmol/L (136-145)
[2024-07-03 11:30] LABS: SARS-CoV-2 N1 Negative; SARS-CoV-2 N2 Negative; SARS-CoV-2 RNAse P1 Positive; SARS-CoV-2 RNAse P2 Positive
[2024-07-03] MEDS: Sodium Chloride 1 GM TAB PO SCH ×2 (16:32→21:13)
[2024-07-03] MEDS: Sodium Bicarbonate Tab 325 MG TAB PO SCH ×2 (17:09→20:56)
[2024-07-03 18:32] LABS: Albumin 3.1 g/dL (3.4-4.8); Anion Gap 14 mmol/L (10-20); BUN (Urea Nitrogen) 23 mg/dL (9.8-20.1); BUN/Creatinine Ratio 34.85; Calc. Creatinine Clearance 65 mL/min (70-130); Calcium 8.1 mg/dL (7.8-10.44); Carbon Dioxide 20 mmol/L (23-31); Chloride 94 mmol/L (98-107); Estimated GFR 86; Glucose 119 mg/dL (83-110); Phosphorus 4.3 mg/dL (2.3-4.7); Sodium 124 mmol/L (136-145)
[2024-07-03] MEDS: Pantoprazole 40 MG VIAL IVP SCH (20:57)
[2024-07-03] MEDS: PREDNISOLONE ACET 0.12% EA EYE SCH (20:57)
[2024-07-04] MEDS: Sodium Chloride 0.9% 1,000 ML IV SCH (01:17)
[2024-07-04 06:41] LABS: Albumin 2.7 g/dL (3.4-4.8); Anion Gap 11 mmol/L (10-20); BUN (Urea Nitrogen) 21 mg/dL (9.8-20.1); BUN/Creatinine Ratio 27.63; Calc. Creatinine Clearance 57 mL/min (70-130); Calcium 7.4 mg/dL (7.8-10.44); Carbon Dioxide 22 mmol/L (23-31); Chloride 102 mmol/L (98-107); Estimated GFR 77; Glucose 97 mg/dL (83-110); Magnesium 2.3 mg/dL (1.6-2.6); Phosphorus 3.2 mg/dL (2.3-4.7); Potassium 3.5 mmol/L (3.5-5.1); Sodium 131 mmol/L (136-145)
[2024-07-04] MEDS: Potassium Chloride 20 MEQ TAB PO SCH (08:08)
[2024-07-04 12:07] LABS: #Basophils Less than 0.03 10x3/uL (0.0-0.2); %Basophils 0.3 % (0.0-1.0); %Eosinophils 0.6 % (0.0-10.0); %Lymphocytes 17.1 % (21.0-51.0); %Monocytes 10.9 % (0.0-10.0); %Neutrophils 70.8 % (42.0-75.0); Hematocrit 32.8 % (36.0-47.0); Hemoglobin 11.4 g/dL (12.0-16.0); Mean Corpuscular HGB CONC 34.8 g/dL (32.0-36.0); Mean Corpuscular Hemoglobin 31.6 pg (27.0-31.0); Mean Corpuscular Volume 90.9 fL (78.0-98.0); Mean Platelet Volume 9.1 fL (7.4-10.4); Platelet Count 138 10x3/uL (130-400); RBC Distribution Width 13.6 % (11.5-14.5); Red Blood Cell (RBC) Count 3.61 mill/uL (4.20-5.40)
[2024-07-05 07:33] LABS: #Basophils Less than 0.03 10x3/uL (0.0-0.2); #Eosinophils Less than 0.03 10x3/uL (0.0-0.7); %Basophils 0.3 % (0.0-1.0); %Eosinophils 0.3 % (0.0-10.0); %Lymphocytes 24.9 % (21.0-51.0); %Monocytes 13.8 % (0.0-10.0); %Neutrophils 60.4 % (42.0-75.0); Hematocrit 36.1 % (36.0-47.0); Hemoglobin 12.4 g/dL (12.0-16.0); Mean Corpuscular HGB CONC 34.3 g/dL (32.0-36.0); Mean Corpuscular Hemoglobin 31.2 pg (27.0-31.0); Mean Corpuscular Volume 90.9 fL (78.0-98.0); Mean Platelet Volume 9.7 fL (7.4-10.4); Platelet Count 143 10x3/uL (130-400); RBC Distribution Width 13.6 % (11.5-14.5); Red Blood Cell (RBC) Count 3.97 mill/uL (4.20-5.40)
[2024-07-05 07:54] LABS: ALT (SGPT) 28 U/L (8-55); AST (SGOT) 35 U/L (5-34); Albumin 2.9 g/dL (3.4-4.8); Alkaline Phosphatase 76 U/L (40-110); Anion Gap 11 mmol/L (10-20); BUN (Urea Nitrogen) 12 mg/dL (9.8-20.1); Bilirubin, Total 0.2 mg/dL (0.2-1.2); Calc. Creatinine Clearance 67 mL/min (70-130); Calcium 7.6 mg/dL (7.8-10.44); Carbon Dioxide 23 mmol/L (23-31); Chloride 99 mmol/L (98-107); Estimated GFR 87; Glucose 97 mg/dL (83-110); Potassium 3.9 mmol/L (3.5-5.1); Protein, Total 5.9 g/dL (5.8-8.1); Sodium 129 mmol/L (136-145)
[2024-07-05] MEDS: NS 0.9% w/ 40 MEQ KCL 1,000 ML IV SCH (09:51)
[2024-07-05] MEDS: guaiFENesin ER 600 MG TAB PO SCH ×2 (13:49→21:06)
[2024-07-05 14:32] LABS: Albumin 2.8 g/dL (3.4-4.8); Anion Gap 12 mmol/L (10-20); BUN (Urea Nitrogen) 10 mg/dL (9.8-20.1); BUN/Creatinine Ratio 15.15; Calc. Creatinine Clearance 65 mL/min (70-130); Calcium 7.8 mg/dL (7.8-10.44); Carbon Dioxide 21 mmol/L (23-31); Chloride 100 mmol/L (98-107); Estimated GFR 86; Glucose 141 mg/dL (83-110); Phosphorus 2.1 mg/dL (2.3-4.7); Sodium 129 mmol/L (136-145)
[2024-07-05 21:51] LABS: Bilirubin Negative (Negative); Blood, Urine Negative (Negative); CAUTI Indications for Culture Alt mental st,lethar; Clarity Clear (Clear); Glucose, Urine (Dipstick) Normal (Negative); Ketone, Urine Negative (Negative); Leukocyte 75 Leu/uL (Negative); Nitrite Negative (Negative); Protein, Urine (Dipstick) Negative (Neg-Trace); RBC/HPF 0-3 HPF (0-3); Specific Gravity, Urine 1.009 (1.002-1.036); Squamous Epithelial 0-3 HPF (0-3); Urobilinogen Normal mg/dL (Less than 2)
[2024-07-05 21:52] LABS: Bacteria/HPF Rare-Few HPF (None Seen); Urine Culture Reflex No No
[2024-07-06 06:07] LABS: #Basophils Less than 0.03 10x3/uL (0.0-0.2); %Basophils 0.4 % (0.0-1.0); %Eosinophils 1.8 % (0.0-10.0); %Lymphocytes 38.6 % (21.0-51.0); %Monocytes 12.5 % (0.0-10.0); %Neutrophils 46.5 % (42.0-75.0); Hematocrit 36.7 % (36.0-47.0); Hemoglobin 12.3 g/dL (12.0-16.0); Mean Corpuscular HGB CONC 33.5 g/dL (32.0-36.0); Mean Corpuscular Hemoglobin 30.8 pg (27.0-31.0); Mean Corpuscular Volume 91.8 fL (78.0-98.0); Mean Platelet Volume 9.5 fL (7.4-10.4); Platelet Count 139 10x3/uL (130-400); RBC Distribution Width 13.7 % (11.5-14.5)
[2024-07-06 06:32] LABS: ALT (SGPT) 27 U/L (8-55); AST (SGOT) 32 U/L (5-34); Albumin 2.9 g/dL (3.4-4.8); Alkaline Phosphatase 77 U/L (40-110); Anion Gap 12 mmol/L (10-20); BUN (Urea Nitrogen) 11 mg/dL (9.8-20.1); Bilirubin, Total 0.3 mg/dL (0.2-1.2); Calc. Creatinine Clearance 65 mL/min (70-130); Calcium 8.1 mg/dL (7.8-10.44); Carbon Dioxide 20 mmol/L (23-31); Chloride 102 mmol/L (98-107); Estimated GFR 86; Globulin 3.3 g/dL (2.4-3.5); Glucose 101 mg/dL (83-110); Potassium 4.2 mmol/L (3.5-5.1); Protein, Total 6.2 g/dL (5.8-8.1); Sodium 130 mmol/L (136-145)
[2024-07-06 10:50] LABS: Magnesium 1.8 mg/dL (1.6-2.6); Phosphorus 2.4 mg/dL (2.3-4.7)
[2024-07-06 15:19] VITALS: BP 94/58; TEMP 98.2
== END 2024-07-06 17:40 | disposition home health service (06) | DRG 689 ==
LOC: ERS 01:01 → ERHOLD 05:36 → T4-A 08:58 → OBSVTOIN 07-03 08:51
PROVIDERS: ADMIT Internal Medicine; ATTEND Internal Medicine
DX: N30.00 Acute cystitis without hematuria (principal); G93.41 Metabolic encephalopathy; E87.1 Hypo-osmolality and hyponatremia; E87.20 Acidosis, unspecified; I10 Essential (primary) hypertension; E03.9 Hypothyroidism, unspecified; I48.91 Unspecified atrial fibrillation; I44.7 Left bundle-branch block, unspecified; F32.A Depression, unspecified; E83.42 Hypomagnesemia; E83.39 Other disorders of phosphorus metabolism; D64.9 Anemia, unspecified; E11.9 Type 2 diabetes mellitus without complications; G50.0 Trigeminal neuralgia; Z95.0 Presence of cardiac pacemaker
CPT/HCPCS: 36415; 70450; 71045; 80048; 80053; 80069; 81001; 82274; 82306; 82436; 82550; 83605; 83690; 83735; 83930; 83935; 84100; 84133; 84300; 84443; 84484; 84540; 84560; 85025; 87040; 87086; 87635; 93005; 96374; J0696; J2405; J2470; J3475; J3480; J7030; Q0162

== ENCOUNTER 2024-07-16 14:36 | Outpatient (CLI) | payer MEDICARE, MEDICAID | END 2024-07-16 14:37 | disposition home or self-care (01) | LOC: ULT 14:36 | PROVIDERS: ATTEND Family Medicine | DX: M79.605 Pain in left leg (principal) ==